=== PATIENT | male | born 1955 | race Caucasian/White ===

== ENCOUNTER → 2018-01-06 | Outpatient (CLI) | payer OTHER ==
--- NOTE | 2018-01-06 16:15 | DIAGNOSTIC IMAGING REPORT ---
MRI OF THE CERVICAL SPINE WITHOUT CONTRAST, INCLUDING FLEXION AND EXTENSION WITH CSF FLOW CLINICAL HISTORY: Neck pain. COMPARISON STUDY: None. TECHNIQUE: Utilizing a 1.5 Christy magnet, multiplanar, multi echo imaging of the cervical spine was performed utilizing T2 weighted sequences without intravenous contrast in the neutral, flexion and extension positions. CSF flow was assessed in each position. FINDINGS: Alignment of the cervical spine is anatomic. Vertebral body heights are maintained. There is no suspicious marrow replacement. Visualized portions of the posterior fossa are unremarkable with the exception of mild increased T2 signal within the jarad which likely reflect small vessel disease. No intracanalicular mass or fluid collection. Cervical cord signal and caliber are normal. CSF flow is within normal limits in the anterior and posterior aspects of the canal in the neutral, flexion and extension positions. The foramen magnum is patent. There is no evidence for a Chiari malformation. C2-C3: Central canal and neural foramen are patent. C3-C4: Posterior osteophyte complex results in mild narrowing of the central canal with effacement of the anterior thecal sac. This increases with extension which results in indentation of the cord. There is moderate to severe bilateral neural foraminal stenosis due to uncovertebral hypertrophy and facet arthrosis. C4-C5: Posterior disc osteophyte complex is noted that indents the cord with extension. There is moderate bilateral neural foraminal stenosis. C5-C6: Posterior disc osteophyte complex effaces the anterior thecal sac in neutral position and slightly indents the ventral aspect of the cord and extension. Neural foramen are patent. C6-C7: Left paracentral disc protrusion indents the left ventral aspect of the cord. The neural foramen are patent. C7-T1: Small central disc protrusion is present. Central canal neural foramen are patent. IMPRESSION: 1. Moderate multilevel degenerative disc disease and facet arthrosis, as detailed above. Multiple posterior discussed by complexes/protrusion indents the ventral aspect of the cord, most pronounced the C3-C4, C4-C5, C5-C6 and C6-C7 levels. Normal cervical cord signal and caliber. 2. Normal CSF flow in the neutral, flexion and extension positions. 3. Patent foramen magnum. No Chiari malformation. 4. Multilevel neural foraminal stenosis, most pronounced at C3-C4 and C4-C5. Electronically signed by: Elmer Nunes M.D. 01/06/2018 4:14 PM Dictated Date/Time: 01/06/2018 3:11 PM
== END | disposition home or self-care (01) ==
LOC: C.MRIBC 13:20
PROVIDERS: ATTEND Neurological Surgery
DX: M50.30 Other cervical disc degeneration, unspecified cervical region (principal)